=== PATIENT | female | born 1955 | race Caucasian/White ===

== ENCOUNTER 2019-02-09 10:20 | Emergency (ER) | payer SELFPAY ==
[~2019-02-09] VITALS: Ht 154.9 cm; Wt 90.0 kg
[~2019-02-09 10:20] MED LIST: ANTIHYPERTENSIVE
[2019-02-09] MEDS ORDERED: ATOR40TA28 PO (10:43)
[2019-02-09] MEDS ORDERED: HYDR25TA PO (10:43)
[2019-02-09] MEDS ORDERED: METF-960 PO (10:43)
[2019-02-09] MEDS ORDERED: LORA10TA7 PO (10:43)
[2019-02-09] MEDS ORDERED: IBUP-2071 PO (10:43)
[2019-02-09] MEDS ORDERED: ACET-66 PO (10:43)
[2019-02-09] MEDS ORDERED: LOSA50TA64 PO (10:43)
[2019-02-09] MEDS ORDERED: KETOROLAC TROMETHAMINE 60 MG/2 ML VIAL IM ONE (11:45)
[2019-02-09 13:55] VITALS: BP 151/85
== END 2019-02-09 14:08 | disposition home or self-care (01) ==
LOC: EMS 10:22
DX: S40.011A Contusion of right shoulder, initial encounter (principal); S70.02XA Contusion of left hip, initial encounter; S70.01XA Contusion of right hip, initial encounter; M75.31 Calcific tendinitis of right shoulder; I10 Essential (primary) hypertension; E11.9 Type 2 diabetes mellitus without complications; Z79.84 Long term (current) use of oral hypoglycemic drugs; Z79.899 Other long term (current) drug therapy; W07.XXXA Fall from chair, initial encounter; Y93.89 Activity, other specified; Y92.89 Other specified places as the place of occurrence of the external cause; Y99.8 Other external cause status
CPT/HCPCS: 73030; 73521; 82962; 96372; 99283; J1885

== ENCOUNTER 2023-06-29 12:14 | Emergency (ER) | payer MEDICAID ==
[~2023-06-29] VITALS: Ht 154.9 cm; Wt 80.5 kg
[~2023-06-29 12:14] MED LIST changes: +ACET-3385 PO; -ANTIHYPERTENSIVE; +ATOR40TA28 PO; +HYDR25TA2 PO; +IBUP-1493 PO; +LORA10TA7 PO; +LOSA-382 PO; +METF-1211 PO
[2023-06-29 12:24] VITALS: BP 133/65; PULSE 82; RESP 18; TEMP 98.3
== END 2023-06-29 18:31 | disposition left against medical advice (07) ==
LOC: EMS 14:15
DX: R51.9 Headache, unspecified (principal); Z53.21 Procedure and treatment not carried out due to patient leaving prior to being seen by health care provider
CPT/HCPCS: 99281; Z7502